=== PATIENT | female | born 2000 | race Caucasian/White ===

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

== ENCOUNTER 2018-08-29 14:44 | Emergency (ER) | payer BC, OTHER ==
[2018-08-29] MEDS ORDERED: NS 1,000 ML IV ONE (15:04)
--- NOTE | 2018-08-29 15:46 | EDPHY ---
H & P Time Seen by Provider: 08/29/18 15:01 HPI/ROS: HPI Seizure versus panic attack versus fainting. 17-year-old female by ambulance. This patient does have a history of anxiety. She reports that around 1:00 p.m. She was texting on the phone with a friend when she started feeling anxious and as she describes it strange all over. She reports that she started breathing heavily and felt like she was short of breath. She then talk to her mother. And after this conversation decided she wanted to lay down. She is not sure she was in bed but she wound up on the floor. When she regained consciousness she was not sure what had happened. She is concerned that she may have had a seizure. She gives a vague history of a QT interval problem from a previous EKG. She had a posterior headache which is now resolving. She denies any loss of sensation or weakness in her extremities. No changes in vision. No fever. No neck pain or back pain. She has no prior history of seizures. She feels anxious currently but does not want to take any anxiety medication. She is not medicated currently for her anxiety. ROS: Constitutional: No fever, no chills. As above. Eyes: No discharge. No changes in vision. ENT: No sore throat. No nasal congestion or rhinorrhea. Respiratory: No cough. No shortness of breath. Cardiac: No chest pain, no palpitations. Gastrointestinal: No abdominal pain, no vomiting, no diarrhea. Genitourinary: No hematuria. No dysuria or increased frequency with urination. Musculoskeletal: No back pain. No neck pain. No myalgias or arthralgias. Skin: No rashes. Neurological: As above. No focal weakness or altered sensation. Past medical history: Peanut allergy which causes anaphylaxis. She tells me that a lot of her anxiety revolves around this. She otherwise denies any significant past medical history. Social history: She is a student at [employer]. She drinks alcohol occasionally with friends when they go out. No alcohol last night. She denies any IV drugs or street drugs. She does not smoke. She is currently here by herself[place] Physical Exam: General Appearance: Alert, mildly anxious and emotionally labile but not in distress. This patient is responding to questions appropriately and in full sentences. This patient appears well-hydrated and well-nourished. Head: Normocephalic atraumatic. Face: Facial bones are stable on palpation. Eyes: Pupils equal and round and reactive to light, no pallor or injection. No lid erythema or edema. ENT, Mouth: Mucous membranes moist. Dentition is intact. No malocclusion of the jaw. No tongue lacerations or abrasions. Pharynx is clear. The bilateral nasal canals are clear. No septal hematoma. Upper airway sounds are normal on auscultation. No voice changes. Respiratory: There are no retractions, lungs are clear to auscultation with good air movement bilaterally. Chest wall is stable to AP and lateral palpation. Cardiovascular: Regular rate and rhythm. No murmur. Gastrointestinal: Abdomen is soft and nontender, no masses, bowel sounds normal. Neurological: Motor sensory function is intact. Cranial nerves are normal. Cerebellar function intact. Skin: Warm and dry, no rashes. No lacerations, abrasions or contusions. Musculoskeletal: Neck is supple and nontender. The trachea is midline. No midline cervical, thoracic, lumbar or sacral tenderness on palpation. No flank tenderness on palpation. Extremities are symmetrical, full range of motion. All joints in the bilateral upper and bilateral lower extremities range without pain or impingement. No tenderness on palpation of the long bones in the bilateral upper and bilateral lower extremities. Psychiatric: No agitation. No depression. Database: EKG: EKG time is 3:49 p.m.; EKG shows a narrow complex normal sinus rhythm with a ventricular rate of 52. The MI, QRS, QT intervals are within normal limits. There are no ST-T wave changes indicative of ischemic or injury pattern. No evidence of right heart strain. No evidence of WPW, Brugada syndrome, hypertrophic cardiomyopathy. Interpreted by me. Imaging: Procedures: Emergency department course: Triage vital signs reviewed. She is mildly hypertensive but otherwise vital signs are normal. She is afebrile. IV was placed. She was started on IV normal saline with 1 L to be given over the next hour. Chem 7 to be obtained. EKG to be obtained. 4:30 p.m., the patient was re-evaluated, she is resting comfortably at this time. Her vital signs are normal. Repeat neurologic Assessment is nonfocal. Results of her EKG as well as blood work were discussed with her in detail. Her presentation is more consistent with a panic attack. She states that she does not think she fully lost consciousness but was on the ground hyperventilating. At this time she feels comfortable going home and I feel she is safe for discharge. I discussed follow-up through her primary care physician at the [facility]. Return to emergency department precautions were reviewed carefully with her. All of her questions were answered. She was discharged in good condition. Differential Diagnosis: The differential diagnosis on this patient includes but is not limited to seizure, less likely without acidosis and tongue biting, possible syncopal event verses panic attack and hyper ventilation which led to a near syncopal event. CVA, meningitis, encephalitis, traumatic brain injury unlikely. This represents a partial list of diagnoses considered. These considerations are based on history, physical exam, past history, reassessment and diagnostic testing. Smoking Status: Never smoked Constitutional: Initial Vital Signs Temperature (C) 36.8 C 08/29/18 14:46 Heart Rate 64 08/29/18 14:46 Respiratory Rate 18 08/29/18 14:46 Blood Pressure 143/89 H 08/29/18 14:46 O2 Sat (%) 99 08/29/18 14:46 O2 Delivery Mode Room Air Allergies/Adverse Reactions: peanut Allergy (Verified 08/29/18 14:52) Sulfa (Sulfonamide Antibiotics) Allergy (Verified 08/29/18 14:52) Home Medications: Medication Instructions Recorded EPINEPHrine [Epipen 0.3 MG] 0.3 mg IM ONCE #2 syr 12/31/17 predniSONE 60 mg PO DAILY #9 tab 12/31/17 Medical Decision Making - Data Points Laboratory Results: Laboratory Results 08/29/18 15:15 08/29/18 08/29/18 15:15 15:15 Sodium 138 mEq/L mEq/L (135-145) Potassium 3.5 mEq/L mEq/L (3.5-5.2) Chloride 103 mEq/L mEq/L (97-110) Carbon Dioxide 24 mEq/l mEq/l (22-31) Anion Gap 11 mEq/L mEq/L (6-14) BUN 6 mg/dL L mg/dL (7-23) Creatinine 0.6 mg/dL mg/dL (0.6-1.0) Estimated GFR > 60 Glucose 104 mg/dL H mg/dL (70-100) Calcium 9.8 mg/dL mg/dL (8.5-10.4) Beta HCG, Qual NEGATIVE Medications Given: Discontinued Medications Sodium Chloride (Ns) 1,000 mls @ 0 mls/hr IV EDNOW ONE; Wide Open PRN Reason: Protocol Stop: 08/29/18 15:05 Last Admin: 08/29/18 15:19 Dose: 1,000 mls Departure - Departure Disposition: Home, Routine, Self-Care Clinical Impression: Transient alteration of awareness, Panic attack Condition: Good Instructions: Panic Attack (ED) Additional Instructions: Read and follow provided instructions. Follow-up with your primary care physician in 1-2 days for re-evaluation at the [facility]. Keep yourself well hydrated. Return to the emergency department for return of symptoms, lightheadedness, fainting, heart palpitations or other serious concerns. Referrals: [facility] [Other] - As per Instructions [facility] ,. [Clinic] - As per Instructions
[2018-08-29 16:47] VITALS: BP 122/69
--- NOTE | 2018-08-29 22:23 | CPEKG ---
Test Reason : OPEN Blood Pressure : / mmHG Vent. Rate : 052 BPM Atrial Rate : 051 BPM P-R Int : 127 ms QRS Dur : 075 ms QT Int : 489 ms P-R-T Axes : 019 049 031 degrees QTc Int : 455 ms Sinus rhythm Confirmed by Jonatan Sauceda ([id number]) on 08/29/2018 10:23:00 PM Referred By: Jonatan Sauceda Confirmed By:Jonatan Sauceda
== END 2018-08-29 16:47 | disposition home or self-care (01) ==
DX: F41.9 Anxiety disorder, unspecified (principal); E86.9 Volume depletion, unspecified